=== PATIENT | male | born 1930 | race Caucasian/White ===

== ENCOUNTER 2019-01-21 22:24 | Inpatient (IN) | payer MEDICARE, MEDICAID ==
[~2019-01-21] VITALS: Ht 162.6 cm; Wt 67.6 kg
[2019-01-22 01:00] VITALS: BP 125/82
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
[2019-01-22] MEDS ORDERED: OMEG1CAP55 PO (01:45)
[2019-01-22] MEDS ORDERED: CALC1TAB30 PO (01:47)
[2019-01-22] MEDS ORDERED: RANI150T8 PO (01:49)
[2019-01-22] MEDS ORDERED: ASPI-1152 PO (01:50)
[2019-01-22] MEDS ORDERED: FLUT16SP16 NS (01:52)
[2019-01-22] MEDS ORDERED: GABA-532 PO (01:53)
[2019-01-22] MEDS ORDERED: TELM40TA2 PO (01:54)
[2019-01-22] MEDS ORDERED: CILO100T PO (01:54)
[2019-01-22] MEDS ORDERED: CELE200C PO (01:55)
[2019-01-22] MEDS ORDERED: ESOM40CA PO (01:57)
[2019-01-22] MEDS ORDERED: CALC500T52 PO (01:57)
[2019-01-22] MEDS ORDERED: SOLI5TAB2 PO (01:58)
[2019-01-22] MEDS ORDERED: NEBI5TAB8 PO (01:59)
[2019-01-22] MEDS ORDERED: MAG HYDROX/AL HYDROX/SIMETH 30 ML UDC PO PRN (02:00)
[2019-01-22] MEDS ORDERED: MAGNESIUM HYDROXIDE 30 ML UDC PO PRN (02:00)
[2019-01-22] MEDS ORDERED: ACETAMINOPHEN 325 MG TABLET PO PRN (02:00)
[2019-01-22] MEDS ORDERED: CHOL200026 PO (02:00)
[2019-01-22] MEDS ORDERED: ALCA3DRO EACHEYE (02:01)
[2019-01-22] MEDS ORDERED: ATOR10TA PO (02:01)
[2019-01-22] MEDS ORDERED: CLOP75TA15 PO (02:02)
[2019-01-22] MEDS ORDERED: TAMS-12 PO (02:03)
[2019-01-22] MEDS ORDERED: LEVO25TA7 PO (02:06)
[2019-01-22] MEDS ORDERED: RIVA10TA PO (02:07)
[2019-01-22] MEDS ORDERED: LORA-259 PO (02:09)
[2019-01-22] MEDS ORDERED: FOLI1TAB16 PO (02:10)
[2019-01-22] MEDS ORDERED: DOCU-141 PO (02:11)
[2019-01-22] MEDS ORDERED: METF-440 PO (02:13)
[2019-01-22] MEDS ORDERED: ZALE10CA PO (02:14)
--- NOTE | 2019-01-22 06:10 | NUR ---
PAGED DR. NATARAJAN FOR MED RECON. AWAITING FOR CALLBACK. WILL ENDORSE TO THE NEXT SHIFT FOR FOLLOW UP.
[2019-01-22 07:04] LABS: BASOPHILS # (AUTO) 0.1 /CMM (0.0-0.2); BASOPHILS % (AUTO) 0.8 % (0.0-2.0); EOSINOPHILS % (AUTO) 1.8 % (0.0-6.0); HEMATOCRIT 40 % (39-51); HEMOGLOBIN 13.6 g/dL (13.5-17.5); LYMPHOCYTES # (AUTO) 1.9 /CMM (0.8-4.8); LYMPHOCYTES % (AUTO) 25.4 % (20.0-44.0); MEAN CORPUSCULAR HGB CONC 34 g/dl (31.0-36.0); MEAN CORPUSCULAR VOLUME 98 fL (80-96); MONOCYTES # (AUTO) 1.2 /CMM (0.1-1.30); MONOCYTES % (AUTO) 15.7 % (2.0-12.0); NEUTROPHILS # (AUTO) 4.2 /CMM (1.8-8.9); NEUTROPHILS % (AUTO) 56.3 % (43.0-81.0); PLATELET COUNT (AUTO) 360 /CMM (150-450); WHITE BLOOD COUNT (AUTO) 7.5 K/uL (4.3-11.0)
[2019-01-22 07:33] LABS: ALANINE AMINOTRANSFERASE 26 U/L (12-78); ALBUMIN 2.7 g/dL (3.4-5.0); ALKALINE PHOSPHATASE 78 U/L (46-116); ASPARTATE AMINOTRANSFERASE 27 U/L (15-37); BILIRUBIN,TOTAL 0.4 mg/dL (0.2-1.0); CALCIUM, SERUM 8.6 mg/dL (8.5-10.1); CARBON DIOXIDE 29 mmol/L (21-32); CHLORIDE 105 mmol/L (98-107); CREATININE 0.9 mg/dL (0.6-1.3); GLUCOSE 103 mg/dL (74-106); POTASSIUM 4.5 mmol/L (3.5-5.1); SODIUM SERUM 140 mmol/L (136-145); TOTAL PROTEIN, SERUM 6.4 g/dL (6.4-8.2); UREA NITROGEN, BLOOD 22 mg/dL (7-18)
[2019-01-22 07:35] LABS: CHOLESTEROL 159 mg/dL (<200); HDL CHOLESTEROL 53 mg/dL (40-60); LDL 93 mg/dL (0-99); TRIGLYCERIDES 78 mg/dL (30-150)
[2019-01-22 08:00] VITALS: BP 129/68
[2019-01-22] MEDS: NICOTINE PATCH (14MG) 14 MG PATCH.TD24 TD SCH (08:47)
[2019-01-22 09:21] LABS: EOSINOPHILS % (MANUAL) 3 % (0-4); LYMPHOCYTES % (MANUAL) 21 % (16-48); MONOCYTES % (MANUAL) 12 % (0-11.0); NEUTROPHILS % (MANUAL) 64 (42-76)
--- NOTE | 2019-01-22 14:13 | NUR ---
SW called the pts niece, Tonya ([phone]), who stated that the pt is resistant to care and has not been able to take care of himself or his home without his . Pts treatment plan and initial discharge plan was discussed.
--- NOTE | 2019-01-22 14:13 | NUR ---
Initial Discharge Plan: Pt currently resides at his home alone located at [address] [place] [address]; ([phone]). Per pt, he would like to be discharged to the [facility] where he has homeless friends even though he has a home. SW will work with the pt and the MD regarding appropriate discharge planning. SW will form a safe and proper discharge.
[2019-01-22 16:00] VITALS: BP 155/89
--- NOTE | 2019-01-22 16:27 | NUR ---
Group Note: Pt refused to attend group therapy that took place on 01/22/19 at 2:30PM because he stated that he wanted to remain in his room where he is comfortable and because he does not need any help.
[2019-01-22] MEDS: QUETIAPINE FUMARATE 25 MG TABLET PO SCH (16:50)
--- NOTE | 2019-01-22 19:45 | NUR ---
GPS RN NOTE, RECEIVED PATIENT AWAKE AND IN BED, NO S/S OR COMPLAINTS OF PAIN AT THIS TIME. PATIENT IS DISPLAYING NO S/S OF APPARENT DISTRESS AT THIS TIME. PATIENT IS SLOVAK SPEAKING. PATIENT BREATHING IS UNLABORED WITH EQUAL RISE AND FALL OF THE CHEST. PATIENT IS ALERT AND ORIENTED X 1 ON ROOM AIR WITH A SPO2 OF 95 %. PAGED [facility] DUE TO THE FACT THAT THIS PATIENT NEEDS A MEDICATION RECLINATION. PATIENT IS MED COMPLAINT, DISORGANIZED, ANXIOUS, UNCOOPERATIVE, PARANOID, DELUSIONAL AT TIMES, AND NEEDS REORIENTATION. PATIENT DENIES SUICIDE AND HOMICIDAL IDEATIONS AT THIS TIME. PATIENT ASSISTED WITH TURNING AND REPOSITIONING Q2HR AND PRN FOR COMFORT AND CIRCULATION. PATIENT HAS NO NEEDS AT THIS TIME. PATIENT EDUCATED ON THE USE OF THE CALL RICK. PATIENT BED SIDE RAILS ARE UP X 2 FOR SAFETY, BED IS LOCKED, AND LOW WILL CONTINUE TO MONITOR AND MAINTAIN SAFETY.
[2019-01-22 20:00] VITALS: BP 155/89
--- NOTE | 2019-01-22 20:00 | NUR ---
PAGED DR. NATARAJAN FOR MED RECON. AWAITING FOR A CALL BACK.
--- NOTE | 2019-01-22 23:10 | NUR ---
PAGED DR. NATARAJAN FOR MED RECON. AWAITING FOR A CALL BACK.
[2019-01-23] MEDS: METOPROLOL TARTRATE 25 MG TABLET PO SCH ×4 (01:03→20:49)
[2019-01-23] MEDS: PANTOPRAZOLE 40 MG TABLET.DR PO SCH ×2 (07:30→08:39)
[2019-01-23] MEDS: LEVOTHYROXINE SODIUM 25 MCG TABLET PO SCH ×2 (07:30→08:41)
[2019-01-23 08:00] VITALS: BP 121/75
[2019-01-23] MEDS: RIVAROXABAN 10 MG TABLET PO SCH ×2 (08:00→08:40)
[2019-01-23] MEDS: METFORMIN 500 MG TABLET PO SCH ×2 (08:00→08:42)
[2019-01-23] MEDS: NICOTINE PATCH (14MG) 14 MG PATCH.TD24 TD SCH ×2 (08:39→08:59)
[2019-01-23] MEDS: CALCIUM CARBONATE (1250) 500 MG TABLET PO SCH ×2 (08:41→08:58)
[2019-01-23] MEDS: CELECOXIB 100 MG CAPSULE PO SCH ×2 (08:41→08:56)
[2019-01-23] MEDS: DOCUSATE SODIUM 100 MG CAPSULE PO SCH ×3 (08:41→16:37)
[2019-01-23] MEDS: GABAPENTIN 100 MG CAPSULE PO SCH ×4 (08:41→16:31)
[2019-01-23] MEDS: OXYBUTYNIN CHLORIDE 5 MG TABLET PO SCH ×3 (08:41→16:31)
[2019-01-23] MEDS: QUETIAPINE FUMARATE 25 MG TABLET PO SCH ×3 (08:41→16:30)
[2019-01-23] MEDS: CLOPIDOGREL BISULFATE 75 MG TABLET PO SCH ×2 (08:41→08:58)
[2019-01-23] MEDS: FOLIC ACID 1 MG TABLET PO SCH ×2 (08:42→08:57)
[2019-01-23] MEDS: ASPIRIN EC 81 MG TABLET.DR PO SCH ×2 (08:42→08:56)
[2019-01-23] MEDS: LOSARTAN POTASSIUM 50 MG TABLET PO SCH ×2 (08:45→08:56)
[2019-01-23] MEDS: FLUTICASONE PROPIONATE 16 GM BOTTLE NS SCH (08:46)
[2019-01-23] MEDS: CILOSTAZOL 100 MG TABLET PO SCH ×2 (08:59→16:31)
[2019-01-23] MEDS: CHOLECALCIFEROL 1,000 UNIT TABLET (VIT D3) PO SCH (08:59)
[2019-01-23] MEDS ORDERED: SOLIFENACIN SUCCINATE 5 MG TABLET PO SCH (09:00)
--- NOTE | 2019-01-23 11:10 | NUR ---
WOUND CARE CONSULT: PT PRESENTS AMBULATORY AND CONTINENT WITH RED LESIONS ON LEFT BUTTOCK, PRESENT ON ADMISSION. 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 PT IS QATARI SPEAKING ONLY AND QATARI SPEAKING NURSE ASSISTING WITH TRANSLATION. DEFER TO MD FOR LESIONS. NO DRAINAGE OR TENDERNESS NOTED. WILL SEE PRN. Addendum: 01/23/19 at 1111 by FABIOLA BASHIR WNDNU Amended: Links added.
[2019-01-23 16:00] VITALS: BP 141/90
--- NOTE | 2019-01-23 16:48 | NUR ---
RN-CO: CALLED DR MEDINA OFFICE , SPOKE WITH MAXI REGARDING DR HAYWOOD'S ORDER. ( TO R/O DEMENTIA)
[2019-01-23 19:58] VITALS: BP 105/72
[2019-01-23 20:12] VITALS: BP 105/72
[2019-01-23] MEDS: ATORVASTATIN 10 MG TABLET PO SCH (21:58)
[2019-01-23] MEDS: TAMSULOSIN 0.4 MG CAP.SR.24H PO SCH (21:58)
[2019-01-24 08:00] VITALS: BP 122/65
[2019-01-24] MEDS: METFORMIN 500 MG TABLET PO SCH (08:00)
[2019-01-24] MEDS: RIVAROXABAN 10 MG TABLET PO SCH (08:00)
[2019-01-24] MEDS: QUETIAPINE FUMARATE 25 MG TABLET PO SCH ×2 (08:24→16:16)
[2019-01-24] MEDS: LEVOTHYROXINE SODIUM 25 MCG TABLET PO SCH (08:24)
[2019-01-24] MEDS: CHOLECALCIFEROL 1,000 UNIT TABLET (VIT D3) PO SCH (08:24)
[2019-01-24] MEDS: ASPIRIN EC 81 MG TABLET.DR PO SCH (08:24)
[2019-01-24] MEDS: PANTOPRAZOLE 40 MG TABLET.DR PO SCH (08:24)
[2019-01-24] MEDS: GABAPENTIN 100 MG CAPSULE PO SCH ×3 (08:25→16:16)
[2019-01-24] MEDS: METOPROLOL TARTRATE 25 MG TABLET PO SCH ×2 (08:25→21:29)
[2019-01-24] MEDS: LOSARTAN POTASSIUM 50 MG TABLET PO SCH (08:26)
[2019-01-24] MEDS: FLUTICASONE PROPIONATE 16 GM BOTTLE NS SCH (08:26)
[2019-01-24] MEDS: CELECOXIB 100 MG CAPSULE PO SCH (08:26)
[2019-01-24] MEDS: DOCUSATE SODIUM 100 MG CAPSULE PO SCH ×2 (08:26→16:18)
[2019-01-24] MEDS: CILOSTAZOL 100 MG TABLET PO SCH ×2 (08:27→16:19)
[2019-01-24] MEDS: CALCIUM CARBONATE (1250) 500 MG TABLET PO SCH (08:27)
[2019-01-24] MEDS: FOLIC ACID 1 MG TABLET PO SCH (08:27)
[2019-01-24] MEDS: CLOPIDOGREL BISULFATE 75 MG TABLET PO SCH (08:27)
[2019-01-24] MEDS: OXYBUTYNIN CHLORIDE 5 MG TABLET PO SCH ×2 (08:27→16:56)
[2019-01-24] MEDS: NICOTINE PATCH (14MG) 14 MG PATCH.TD24 TD SCH (08:27)
[2019-01-24 16:00] VITALS: BP 148/88
[2019-01-24 19:54] VITALS: BP 117/78
[2019-01-24] MEDS: ATORVASTATIN 10 MG TABLET PO SCH (21:28)
[2019-01-24] MEDS: TAMSULOSIN 0.4 MG CAP.SR.24H PO SCH (21:28)
[2019-01-24] MEDS: TEMAZEPAM 7.5 MG CAPSULE PO PRN (21:29)
[2019-01-25 08:00] VITALS: BP 120/77
[2019-01-25] MEDS: NICOTINE PATCH (14MG) 14 MG PATCH.TD24 TD SCH (08:59)
[2019-01-25] MEDS: ASPIRIN EC 81 MG TABLET.DR PO SCH (08:59)
[2019-01-25] MEDS: PANTOPRAZOLE 40 MG TABLET.DR PO SCH (08:59)
[2019-01-25] MEDS: CHOLECALCIFEROL 1,000 UNIT TABLET (VIT D3) PO SCH (09:00)
[2019-01-25] MEDS: CALCIUM CARBONATE (1250) 500 MG TABLET PO SCH (09:01)
[2019-01-25] MEDS: CELECOXIB 100 MG CAPSULE PO SCH (09:01)
[2019-01-25] MEDS: CLOPIDOGREL BISULFATE 75 MG TABLET PO SCH (09:03)
[2019-01-25] MEDS: RIVAROXABAN 10 MG TABLET PO SCH (09:03)
[2019-01-25] MEDS: DOCUSATE SODIUM 100 MG CAPSULE PO SCH (09:04)
[2019-01-25] MEDS: METFORMIN 500 MG TABLET PO SCH (09:04)
[2019-01-25] MEDS: FOLIC ACID 1 MG TABLET PO SCH (09:04)
[2019-01-25] MEDS: LOSARTAN POTASSIUM 50 MG TABLET PO SCH (09:05)
[2019-01-25] MEDS: OXYBUTYNIN CHLORIDE 5 MG TABLET PO SCH ×2 (09:05→18:47)
[2019-01-25] MEDS: QUETIAPINE FUMARATE 25 MG TABLET PO SCH ×2 (09:07→18:50)
[2019-01-25] MEDS: GABAPENTIN 100 MG CAPSULE PO SCH ×2 (09:07→17:00)
[2019-01-25] MEDS: CILOSTAZOL 100 MG TABLET PO SCH ×2 (09:08→18:47)
[2019-01-25] MEDS: FLUTICASONE PROPIONATE 16 GM BOTTLE NS SCH (09:11)
[2019-01-25] MEDS: LEVOTHYROXINE SODIUM 25 MCG TABLET PO SCH (09:18)
[2019-01-25] MEDS: METOPROLOL TARTRATE 25 MG TABLET PO SCH (09:19)
[2019-01-25 09:45] LABS: APPEARANCE,URINE TURBID (CLEAR); BILIRUBIN,URINE 1+ (NEGATIVE); BLOOD, URINE NEGATIVE Ery/uL (NEGATIVE); COLOR,URINE YELLOW (YELLOW); KETONES,URINE NEGATIVE (NEGATIVE); LEUKOCYTE ESTERASE ,URINE NEGATIVE (NEGATIVE); NITRITE, URINE NEGATIVE (NEGATIVE); PH,URINE 5.5 (5.0-8.0); PROTEIN,URINE TRACE mg/dl (NEGATIVE); UGLUCOSE NEGATIVE (NEGATIVE); UROBILINOGEN,URINE 0.2 EU/dL (0.2)
[2019-01-25 10:01] LABS: BACTERIA,URINE Rare /HPF (None Seen); RBC,URINE 0-2 /HPF (0-2); SQUAMOUS EPITHELIAL CELL,UR 0-2 /HPF (None Seen); WBC,URINE 0-2 /HPF (0-3)
[2019-01-25 10:02] LABS: URINE AMORPHOUS URATE Many /HPF (None Seen)
[2019-01-25 16:00] VITALS: BP 130/67
[2019-01-25 20:00] VITALS: BP 155/76
[2019-01-25] MEDS: ATORVASTATIN 10 MG TABLET PO SCH (21:40)
[2019-01-25] MEDS: TAMSULOSIN 0.4 MG CAP.SR.24H PO SCH (21:40)
[2019-01-26] MEDS: TEMAZEPAM 7.5 MG CAPSULE PO PRN ×2 (01:09→21:39)
[2019-01-26] MEDS: PANTOPRAZOLE 40 MG TABLET.DR PO SCH (07:30)
[2019-01-26 08:00] VITALS: BP 111/71
[2019-01-26] MEDS: RIVAROXABAN 10 MG TABLET PO SCH (08:00)
[2019-01-26] MEDS: METFORMIN 500 MG TABLET PO SCH (08:00)
--- NOTE | 2019-01-26 08:20 | NUR ---
GPS RN NOTE: AM MEDICATIONS WAS UNDONE FOR LAST MORNING RN THE ONE SCHEDULE FOR 01/26/19 , TO ADMINISTER AM SCHEDULED MEDICATIONS. CHARGE NURSE, PHARMACIST NOTIFIED.
[2019-01-26] MEDS: ASPIRIN EC 81 MG TABLET.DR PO SCH (08:41)
[2019-01-26] MEDS: LEVOTHYROXINE SODIUM 25 MCG TABLET PO SCH (08:41)
[2019-01-26] MEDS: QUETIAPINE FUMARATE 25 MG TABLET PO SCH ×2 (08:42→16:25)
[2019-01-26] MEDS: CHOLECALCIFEROL 1,000 UNIT TABLET (VIT D3) PO SCH (08:42)
[2019-01-26] MEDS: GABAPENTIN 100 MG CAPSULE PO SCH ×3 (08:42→16:25)
[2019-01-26] MEDS: DOCUSATE SODIUM 100 MG CAPSULE PO SCH ×2 (08:45→16:24)
[2019-01-26] MEDS: LOSARTAN POTASSIUM 50 MG TABLET PO SCH (08:45)
[2019-01-26] MEDS: FLUTICASONE PROPIONATE 16 GM BOTTLE NS SCH (08:45)
[2019-01-26] MEDS: OXYBUTYNIN CHLORIDE 5 MG TABLET PO SCH ×2 (08:45→16:24)
[2019-01-26] MEDS: METOPROLOL TARTRATE 25 MG TABLET PO SCH ×2 (08:45→21:39)
[2019-01-26] MEDS: FOLIC ACID 1 MG TABLET PO SCH (08:45)
[2019-01-26] MEDS: CELECOXIB 100 MG CAPSULE PO SCH (08:45)
[2019-01-26] MEDS: CALCIUM CARBONATE (1250) 500 MG TABLET PO SCH (08:46)
[2019-01-26] MEDS: CLOPIDOGREL BISULFATE 75 MG TABLET PO SCH (08:46)
[2019-01-26] MEDS: NICOTINE PATCH (14MG) 14 MG PATCH.TD24 TD SCH (08:46)
--- NOTE | 2019-01-26 15:15 | NUR ---
PC Hearing Notification: KAYLA called the pts Tonya hebert ([phone]), and left her a message stating that the pt is going to have a hearing tomorrow and explained the process of the hearing.
[2019-01-26 16:00] VITALS: BP 144/97
[2019-01-26] MEDS: CILOSTAZOL 100 MG TABLET PO SCH (16:25)
[2019-01-26 20:14] VITALS: BP 159/73
[2019-01-26] MEDS: TAMSULOSIN 0.4 MG CAP.SR.24H PO SCH (21:39)
[2019-01-26] MEDS: ATORVASTATIN 10 MG TABLET PO SCH (21:39)
[2019-01-27 08:00] VITALS: BP 118/80
[2019-01-27] MEDS: LEVOTHYROXINE SODIUM 25 MCG TABLET PO SCH (08:58)
[2019-01-27] MEDS: CALCIUM CARBONATE (1250) 500 MG TABLET PO SCH (08:58)
[2019-01-27] MEDS: CLOPIDOGREL BISULFATE 75 MG TABLET PO SCH (08:58)
[2019-01-27] MEDS: CELECOXIB 100 MG CAPSULE PO SCH (08:58)
[2019-01-27] MEDS: LOSARTAN POTASSIUM 50 MG TABLET PO SCH (08:58)
[2019-01-27] MEDS: GABAPENTIN 100 MG CAPSULE PO SCH ×3 (08:58→16:23)
[2019-01-27] MEDS: METOPROLOL TARTRATE 25 MG TABLET PO SCH ×2 (08:59→21:53)
[2019-01-27] MEDS: PANTOPRAZOLE 40 MG TABLET.DR PO SCH (08:59)
[2019-01-27] MEDS: QUETIAPINE FUMARATE 25 MG TABLET PO SCH ×3 (08:59→21:53)
[2019-01-27] MEDS: OXYBUTYNIN CHLORIDE 5 MG TABLET PO SCH ×2 (08:59→16:23)
[2019-01-27] MEDS: ASPIRIN EC 81 MG TABLET.DR PO SCH (08:59)
[2019-01-27] MEDS: DOCUSATE SODIUM 100 MG CAPSULE PO SCH ×2 (08:59→16:23)
[2019-01-27] MEDS: FOLIC ACID 1 MG TABLET PO SCH (08:59)
[2019-01-27] MEDS: NICOTINE PATCH (14MG) 14 MG PATCH.TD24 TD SCH (09:00)
[2019-01-27] MEDS: CHOLECALCIFEROL 1,000 UNIT TABLET (VIT D3) PO SCH (09:00)
[2019-01-27] MEDS: METFORMIN 500 MG TABLET PO SCH (09:01)
[2019-01-27] MEDS: RIVAROXABAN 10 MG TABLET PO SCH (09:02)
[2019-01-27] MEDS: CILOSTAZOL 100 MG TABLET PO SCH ×2 (09:03→16:23)
[2019-01-27] MEDS: FLUTICASONE PROPIONATE 16 GM BOTTLE NS SCH (09:04)
[2019-01-27 16:00] VITALS: BP 107/70
--- NOTE | 2019-01-27 16:10 | NUR ---
SW called the pts niece, Tonya ([phone]), and informed her that the pt stated that he is accepting SNF placement. SW stated that she would like to send a referral to the same facility that the pts is in. Pts niece stated that the facility is [facility].
--- NOTE | 2019-01-27 16:11 | NUR ---
KAYLA faxed a referral to [facility] with attention to Yesenia to the fax number: [phone].
[2019-01-27 20:28] VITALS: BP 102/58
[2019-01-27] MEDS: LORAZEPAM 0.5 MG TABLET PO PRN (21:52)
[2019-01-27] MEDS: ATORVASTATIN 10 MG TABLET PO SCH (21:52)
[2019-01-27] MEDS: TAMSULOSIN 0.4 MG CAP.SR.24H PO SCH (21:52)
[2019-01-27] MEDS: TEMAZEPAM 7.5 MG CAPSULE PO PRN (21:53)
[2019-01-28] MEDS ORDERED: AMOX/CLAVULANATE 875 MG TABLET ONE (05:00)
[2019-01-28] MEDS: LEVOTHYROXINE SODIUM 25 MCG TABLET PO SCH (07:30)
[2019-01-28] MEDS: PANTOPRAZOLE 40 MG TABLET.DR PO SCH (07:30)
[2019-01-28 08:00] VITALS: BP 127/80
[2019-01-28] MEDS: RIVAROXABAN 10 MG TABLET PO SCH (08:00)
[2019-01-28] MEDS: METFORMIN 500 MG TABLET PO SCH (08:00)
[2019-01-28] MEDS: CELECOXIB 100 MG CAPSULE PO SCH (09:00)
[2019-01-28] MEDS: DOCUSATE SODIUM 100 MG CAPSULE PO SCH ×2 (09:01→17:58)
[2019-01-28] MEDS: GABAPENTIN 100 MG CAPSULE PO SCH ×3 (09:01→17:58)
[2019-01-28] MEDS: ASPIRIN EC 81 MG TABLET.DR PO SCH (09:01)
[2019-01-28] MEDS: CLOPIDOGREL BISULFATE 75 MG TABLET PO SCH (09:01)
[2019-01-28] MEDS: CALCIUM CARBONATE (1250) 500 MG TABLET PO SCH (09:02)
[2019-01-28] MEDS: FOLIC ACID 1 MG TABLET PO SCH (09:02)
[2019-01-28] MEDS: OXYBUTYNIN CHLORIDE 5 MG TABLET PO SCH ×2 (09:03→17:58)
[2019-01-28] MEDS: LOSARTAN POTASSIUM 50 MG TABLET PO SCH (09:03)
[2019-01-28] MEDS: METOPROLOL TARTRATE 25 MG TABLET PO SCH ×2 (09:03→21:00)
[2019-01-28] MEDS: NICOTINE PATCH (14MG) 14 MG PATCH.TD24 TD SCH (09:05)
[2019-01-28] MEDS: CHOLECALCIFEROL 1,000 UNIT TABLET (VIT D3) PO SCH (09:05)
[2019-01-28] MEDS: QUETIAPINE FUMARATE 25 MG TABLET PO SCH ×3 (09:05→21:25)
[2019-01-28] MEDS: FLUTICASONE PROPIONATE 16 GM BOTTLE NS SCH (09:09)
[2019-01-28] MEDS: CILOSTAZOL 100 MG TABLET PO SCH ×2 (09:09→17:58)
[2019-01-28 11:25] LABS: BASOPHILS % (AUTO) 0.5 % (0.0-2.0); EOSINOPHILS % (AUTO) 2.1 % (0.0-6.0); HEMATOCRIT 39 % (39-51); HEMOGLOBIN 12.9 g/dL (13.5-17.5); LYMPHOCYTES # (AUTO) 1.8 /CMM (0.8-4.8); LYMPHOCYTES % (AUTO) 22.9 % (20.0-44.0); MEAN CORPUSCULAR HGB CONC 34 g/dl (31.0-36.0); MEAN CORPUSCULAR VOLUME 97 fL (80-96); MONOCYTES # (AUTO) 1.3 /CMM (0.1-1.30); MONOCYTES % (AUTO) 15.7 % (2.0-12.0); NEUTROPHILS # (AUTO) 4.7 /CMM (1.8-8.9); NEUTROPHILS % (AUTO) 58.8 % (43.0-81.0); PLATELET COUNT (AUTO) 334 /CMM (150-450); RED BLOOD CELL COUNT(AUTO) 3.97 MIL/uL (4.5-6.0); WHITE BLOOD COUNT (AUTO) 8.1 K/uL (4.3-11.0)
[2019-01-28 11:30] LABS: CALCIUM, SERUM 9.1 mg/dL (8.5-10.1); CARBON DIOXIDE 30 mmol/L (21-32); CHLORIDE 100 mmol/L (98-107); CREATININE 1.1 mg/dL (0.6-1.3); GLUCOSE 146 mg/dL (74-106); MAGNESIUM 1.6 mg/dL (1.8-2.4); PHOSPHORUS 3.8 mg/dL (2.5-4.9); POTASSIUM 4.8 mmol/L (3.5-5.1); SODIUM SERUM 137 mmol/L (136-145); UREA NITROGEN, BLOOD 21 mg/dL (7-18)
[2019-01-28] MEDS: LORAZEPAM 0.5 MG TABLET PO PRN (11:46)
--- NOTE | 2019-01-28 11:47 | NUR ---
RN note :patient medicated with ativan 0.5mg po x1 for anxiety will CONTINUE TO MONITOR .
[2019-01-28] MEDS ORDERED: MAGNESIUM OXIDE 400 MG TABLET PO ONE (12:30)
[2019-01-28 12:45] LABS: EOSINOPHILS % (MANUAL) 4 % (0-4); LYMPHOCYTES % (MANUAL) 18 % (16-48); MONOCYTES % (MANUAL) 19 % (0-11.0); NEUTROPHILS % (MANUAL) 59 (42-76)
--- NOTE | 2019-01-28 14:01 | NUR ---
KAYLA returned the call from the pts Tonya hebert ([phone]), and it was discussed that the current plan is for the pt to be admitted into the same [facility] facility as his . She stated that she would like to have DPOA for the pt and the SW informed her that she would have to wait for the pt to be discharged first.
--- NOTE | 2019-01-28 14:07 | NUR ---
KAYLA called Yesenia from [facility] [[email or web address]] and she stated that her DON is still making a decision and the SW will get a call back.
[2019-01-28 16:00] VITALS: BP 100/61
--- NOTE | 2019-01-28 19:50 | NUR ---
GPS RN NOTES RECEIVED WALKING AROUND THE HALLWAYS WITH STEADY GAIT.ABLE TO VERBALIZED NEEDS,EATING CHIPS HE WALKS IN THE HALLWAYS.NOTED SOME DRY SKIN ABRASIONS WITH SCAB ON RIGHT ELBOW.MED COMPLIANT PER REPORT.WILL CONTINUE TO MONITOR BEHAVIOR
[2019-01-28 20:10] VITALS: BP 111/60
--- NOTE | 2019-01-28 21:00 | NUR ---
GPS RN NOTES OFFERED OTHER NIGHT MEDS BUT REFUSED BUT AFTER EXPLAINING BY [employer] STARTER CUP POWDER MIXER RISK AND BENEFITS OF NOT TAKING MEDICINE,HE AGREED TO TAKE HIS MEDICINE,ADMINISTERED,BUT NOT SLEEPING PILL,REFUSED
--- NOTE | 2019-01-28 21:00 | NUR ---
GPS RN NOTES DUE LOPRESSOR 25MG PO HELD FOR LOW BLOOD PRESSURE 111/64
[2019-01-28] MEDS: TAMSULOSIN 0.4 MG CAP.SR.24H PO SCH (21:25)
[2019-01-28] MEDS: ATORVASTATIN 10 MG TABLET PO SCH (21:25)
[2019-01-28] MEDS: TEMAZEPAM 7.5 MG CAPSULE PO PRN (21:26)
[2019-01-29 08:00] VITALS: BP 110/56
[2019-01-29] MEDS: NICOTINE PATCH (14MG) 14 MG PATCH.TD24 TD SCH ×2 (09:00→09:15)
[2019-01-29] MEDS: METOPROLOL TARTRATE 25 MG TABLET PO SCH ×2 (09:14→21:48)
[2019-01-29] MEDS: FLUTICASONE PROPIONATE 16 GM BOTTLE NS SCH (09:14)
[2019-01-29] MEDS: ASPIRIN EC 81 MG TABLET.DR PO SCH (09:15)
[2019-01-29] MEDS: LEVOTHYROXINE SODIUM 25 MCG TABLET PO SCH (09:15)
[2019-01-29] MEDS: CALCIUM CARBONATE (1250) 500 MG TABLET PO SCH (09:15)
[2019-01-29] MEDS: OXYBUTYNIN CHLORIDE 5 MG TABLET PO SCH ×2 (09:15→17:15)
[2019-01-29] MEDS: LOSARTAN POTASSIUM 50 MG TABLET PO SCH (09:15)
[2019-01-29] MEDS: FOLIC ACID 1 MG TABLET PO SCH (09:15)
[2019-01-29] MEDS: GABAPENTIN 100 MG CAPSULE PO SCH ×3 (09:15→17:16)
[2019-01-29] MEDS: PANTOPRAZOLE 40 MG TABLET.DR PO SCH (09:15)
[2019-01-29] MEDS: CELECOXIB 100 MG CAPSULE PO SCH (09:16)
[2019-01-29] MEDS: CHOLECALCIFEROL 1,000 UNIT TABLET (VIT D3) PO SCH (09:16)
[2019-01-29] MEDS: METFORMIN 500 MG TABLET PO SCH (09:16)
[2019-01-29] MEDS: QUETIAPINE FUMARATE 25 MG TABLET PO SCH ×3 (09:16→21:48)
[2019-01-29] MEDS: CILOSTAZOL 100 MG TABLET PO SCH ×2 (09:25→17:15)
[2019-01-29] MEDS: DOCUSATE SODIUM 100 MG CAPSULE PO SCH ×2 (09:25→17:15)
[2019-01-29] MEDS: CLOPIDOGREL BISULFATE 75 MG TABLET PO SCH (09:25)
[2019-01-29] MEDS: RIVAROXABAN 10 MG TABLET PO SCH (09:28)
--- NOTE | 2019-01-29 11:00 | NUR ---
RN GPS NOTES RECEIVED PATIENT A/O X3 WALKING AMBULATORY ON UNIT. NO SIGNS OR SYMPTOMS OF RESPIRATORY DISTRESS OR ACUTE PAIN NOTED. PATIENT IS MED COMPLIANT. ONE EPISODE OF AGITATION UNPROVOKED. PATIENT DENIES AND SUICIDAL IDEATIONS OR HOMICIDAL IDEATIONS AT THIS TIME. APPETITE GOOD SAFETY PRECAUTIONS IN PLACE BED IN LOW AND LOCKED POSITION. PATIENT ABLE TO EXPRESS NEEDS AND ALL MET. PATIENT EDUCATED IN USE OF CALL RICK. WILL CONT TO MONITOR ACCORDINGLY
--- NOTE | 2019-01-29 13:53 | NUR ---
KAYLA called Yesenia from [facility] and she stated that her DON will inform her about whether or not the pt is accepted to their facility.
--- NOTE | 2019-01-29 14:26 | NUR ---
Bárabra from [facility] called the SW and stated that the pt was accepted to their facility and stated that they will send the pt back if they encounter any behavioral problems. As the call went on, she asked if the hospital would apply for public guardianship over the pt and the SW stated that was not the current plan. She stated that she will call the SW back and the SW informed her that the pts niece is in the process of applying for DPOA.
[2019-01-29 16:00] VITALS: BP 100/54
--- NOTE | 2019-01-29 16:45 | NUR ---
ORDERS OBTAINED FROM [facility] FOR RIB SERIES XRAY
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
[2019-01-29 20:00] VITALS: BP 130/86
--- NOTE | 2019-01-29 20:23 | NUR ---
PAGED DR MANCIA INFORMED OF X RATY RESULT ADVUCE TO REFER TO THE MORNING DOCTOR FOR EPIC Addendum: 01/29/19 at 2024 by BELLO MURILLO RN PAGEChika ROBLES INFORMED OF X RAY RESULT. ADVICED TO REFER TO THE MORNING OSVALDO GRIGGS.
[2019-01-29] MEDS: TAMSULOSIN 0.4 MG CAP.SR.24H PO SCH (21:47)
[2019-01-29] MEDS: LORAZEPAM 0.5 MG TABLET PO PRN (21:47)
[2019-01-29] MEDS: TEMAZEPAM 7.5 MG CAPSULE PO PRN (21:48)
[2019-01-29] MEDS: ATORVASTATIN 10 MG TABLET PO SCH (21:48)
[2019-01-30] MEDS: PANTOPRAZOLE 40 MG TABLET.DR PO SCH (07:30)
[2019-01-30 08:00] VITALS: BP 93/56
[2019-01-30] MEDS: METFORMIN 500 MG TABLET PO SCH (08:00)
[2019-01-30] MEDS: RIVAROXABAN 10 MG TABLET PO SCH (08:00)
[2019-01-30] MEDS: ASPIRIN EC 81 MG TABLET.DR PO SCH (08:35)
[2019-01-30] MEDS: OXYBUTYNIN CHLORIDE 5 MG TABLET PO SCH ×2 (08:36→16:18)
[2019-01-30] MEDS: QUETIAPINE FUMARATE 25 MG TABLET PO SCH ×3 (08:36→20:51)
[2019-01-30] MEDS: CHOLECALCIFEROL 1,000 UNIT TABLET (VIT D3) PO SCH (08:36)
[2019-01-30] MEDS: NICOTINE PATCH (14MG) 14 MG PATCH.TD24 TD SCH (08:36)
[2019-01-30] MEDS: LEVOTHYROXINE SODIUM 25 MCG TABLET PO SCH (08:36)
[2019-01-30] MEDS: LOSARTAN POTASSIUM 50 MG TABLET PO SCH (08:38)
[2019-01-30] MEDS: CILOSTAZOL 100 MG TABLET PO SCH ×2 (08:38→16:18)
[2019-01-30] MEDS: CELECOXIB 100 MG CAPSULE PO SCH (08:38)
[2019-01-30] MEDS: DOCUSATE SODIUM 100 MG CAPSULE PO SCH ×2 (08:38→16:18)
[2019-01-30] MEDS: FOLIC ACID 1 MG TABLET PO SCH (08:39)
[2019-01-30] MEDS: METOPROLOL TARTRATE 25 MG TABLET PO SCH ×2 (08:39→20:51)
[2019-01-30] MEDS: CALCIUM CARBONATE (1250) 500 MG TABLET PO SCH (08:39)
[2019-01-30] MEDS: FLUTICASONE PROPIONATE 16 GM BOTTLE NS SCH (08:40)
[2019-01-30] MEDS: CLOPIDOGREL BISULFATE 75 MG TABLET PO SCH (08:55)
[2019-01-30] MEDS: GABAPENTIN 100 MG CAPSULE PO SCH ×3 (08:55→16:18)
--- NOTE | 2019-01-30 13:29 | NUR ---
KAYLA called Yesenia from [facility] and informed her that the pt is going to be discharged on Saturday. She stated that they want the pts guardianship/decision maker to be completed before he is discharged and the SW stated that would not be possible because his niece is just starting the process on being his DPOA but has to wait for him to be out of the hospital before having him sign any papers.
--- NOTE | 2019-01-30 13:36 | NUR ---
KAYLA called the pts niece, Tonya ([phone]), and informed her about the facility's decision and she stated that she wanted the SW to reiterate that she is interested in being her uncle's decision maker but she needs to get the process started once he is released from his hold. KAYLA stated that she would inform them.
--- NOTE | 2019-01-30 13:38 | NUR ---
KAYLA called Yesenia from [facility] and informed her that the niece is interested in becoming the pts DPOA and Yesenia stated that she will meet with her and her DON together to create a plan before they can accept the pt.
--- NOTE | 2019-01-30 15:36 | NUR ---
RN-CO: Patient will be discharge on Saturday per Dr Barron.
[2019-01-30 16:00] VITALS: BP 131/73
[2019-01-30 20:10] VITALS: BP 111/64
[2019-01-30] MEDS: ATORVASTATIN 10 MG TABLET PO SCH (20:51)
[2019-01-30] MEDS: TAMSULOSIN 0.4 MG CAP.SR.24H PO SCH (20:51)
[2019-01-30] MEDS: TEMAZEPAM 7.5 MG CAPSULE PO PRN (20:52)
[2019-01-31] MEDS: METFORMIN 500 MG TABLET PO SCH (08:00)
[2019-01-31] MEDS: RIVAROXABAN 10 MG TABLET PO SCH (08:00)
[2019-01-31] MEDS: CILOSTAZOL 100 MG TABLET PO SCH ×2 (08:50→16:18)
[2019-01-31] MEDS: FLUTICASONE PROPIONATE 16 GM BOTTLE NS SCH (08:50)
[2019-01-31] MEDS: QUETIAPINE FUMARATE 25 MG TABLET PO SCH ×3 (08:50→21:23)
[2019-01-31] MEDS: OXYBUTYNIN CHLORIDE 5 MG TABLET PO SCH ×2 (08:50→16:18)
[2019-01-31] MEDS: GABAPENTIN 100 MG CAPSULE PO SCH ×3 (08:50→16:18)
[2019-01-31] MEDS: PANTOPRAZOLE 40 MG TABLET.DR PO SCH (08:50)
[2019-01-31] MEDS: ASPIRIN EC 81 MG TABLET.DR PO SCH (08:50)
[2019-01-31] MEDS: CALCIUM CARBONATE (1250) 500 MG TABLET PO SCH (08:50)
[2019-01-31] MEDS: CLOPIDOGREL BISULFATE 75 MG TABLET PO SCH (08:50)
[2019-01-31] MEDS: LEVOTHYROXINE SODIUM 25 MCG TABLET PO SCH (08:50)
[2019-01-31] MEDS: CELECOXIB 100 MG CAPSULE PO SCH (08:50)
[2019-01-31] MEDS: LOSARTAN POTASSIUM 50 MG TABLET PO SCH (08:51)
[2019-01-31] MEDS: NICOTINE PATCH (14MG) 14 MG PATCH.TD24 TD SCH (08:51)
[2019-01-31] MEDS: METOPROLOL TARTRATE 25 MG TABLET PO SCH ×2 (08:51→21:23)
[2019-01-31] MEDS: DOCUSATE SODIUM 100 MG CAPSULE PO SCH ×2 (08:51→16:18)
[2019-01-31] MEDS: FOLIC ACID 1 MG TABLET PO SCH (08:51)
[2019-01-31] MEDS: CHOLECALCIFEROL 1,000 UNIT TABLET (VIT D3) PO SCH (08:59)
[2019-01-31 16:00] VITALS: BP 125/72
[2019-01-31 20:10] VITALS: BP 144/78
[2019-01-31] MEDS: TAMSULOSIN 0.4 MG CAP.SR.24H PO SCH (21:23)
[2019-01-31] MEDS: ATORVASTATIN 10 MG TABLET PO SCH (21:23)
[2019-01-31] MEDS: TEMAZEPAM 7.5 MG CAPSULE PO PRN (21:23)
[2019-02-01 08:00] VITALS: BP 101/67
[2019-02-01] MEDS: RIVAROXABAN 10 MG TABLET PO SCH (08:00)
[2019-02-01] MEDS: METFORMIN 500 MG TABLET PO SCH (08:00)
[2019-02-01] MEDS: CELECOXIB 100 MG CAPSULE PO SCH (08:03)
[2019-02-01] MEDS: GABAPENTIN 100 MG CAPSULE PO SCH ×3 (08:03→16:37)
[2019-02-01] MEDS: OXYBUTYNIN CHLORIDE 5 MG TABLET PO SCH ×2 (08:03→16:38)
[2019-02-01] MEDS: CLOPIDOGREL BISULFATE 75 MG TABLET PO SCH (08:03)
[2019-02-01] MEDS: CILOSTAZOL 100 MG TABLET PO SCH ×2 (08:03→16:37)
[2019-02-01] MEDS: PANTOPRAZOLE 40 MG TABLET.DR PO SCH (08:03)
[2019-02-01] MEDS: ASPIRIN EC 81 MG TABLET.DR PO SCH (08:03)
[2019-02-01] MEDS: CALCIUM CARBONATE (1250) 500 MG TABLET PO SCH (08:03)
[2019-02-01] MEDS: LEVOTHYROXINE SODIUM 25 MCG TABLET PO SCH (08:04)
[2019-02-01] MEDS: FOLIC ACID 1 MG TABLET PO SCH (08:04)
[2019-02-01] MEDS: NICOTINE PATCH (14MG) 14 MG PATCH.TD24 TD SCH (08:04)
[2019-02-01] MEDS: METOPROLOL TARTRATE 25 MG TABLET PO SCH ×2 (08:04→21:00)
[2019-02-01] MEDS: QUETIAPINE FUMARATE 25 MG TABLET PO SCH ×3 (08:04→21:51)
[2019-02-01] MEDS: LOSARTAN POTASSIUM 50 MG TABLET PO SCH (08:04)
[2019-02-01] MEDS: CHOLECALCIFEROL 1,000 UNIT TABLET (VIT D3) PO SCH (08:04)
[2019-02-01] MEDS: DOCUSATE SODIUM 100 MG CAPSULE PO SCH ×2 (08:05→16:38)
[2019-02-01] MEDS: FLUTICASONE PROPIONATE 16 GM BOTTLE NS SCH (08:05)
[2019-02-01 16:00] VITALS: BP 148/86
--- NOTE | 2019-02-01 19:30 | NUR ---
GPS RN NOTE, PATIENT AGREED TO DO PICTURES TODAY.
--- NOTE | 2019-02-01 19:30 | NUR ---
GPS RN NOTE, RECEIVED PATIENT AWAKE AND IN BED, NO S/S OR COMPLAINTS OF PAIN AT THIS TIME. PATIENT IS DISPLAYING NO S/S OF APPARENT DISTRESS AT THIS TIME. PATIENT BREATHING IS UNLABORED WITH EQUAL RISE AND FALL OF THE CHEST. PATIENT IS ALERT AND ORIENTED X 2 ON ROOM AIR WITH A SPO2 OF 99 %. PATIENT IS COLOMBIAN SPEAKING ONLY. PATIENT IS MED SELECTIVE, DISORGANIZED, ANXIOUS, COOPERATIVE, AND NEEDS REORIENTATION. PATIENT DENIES SUICIDE AND HOMICIDAL IDEATIONS AT THIS TIME. PATIENT ASSISTED WITH TURNING AND REPOSITIONING Q2HR AND PRN FOR COMFORT AND CIRCULATION. PATIENT HAS NO NEEDS AT THIS TIME. PATIENT EDUCATED ON THE USE OF THE CALL RICK. PATIENT BED SIDE RAILS ARE UP X 2 FOR SAFETY, BED IS LOCKED, AND LOW WILL CONTINUE TO MONITOR AND MAINTAIN SAFETY.
[2019-02-01 20:41] VITALS: BP 116/67
[2019-02-01] MEDS: ATORVASTATIN 10 MG TABLET PO SCH (21:50)
[2019-02-01] MEDS: TAMSULOSIN 0.4 MG CAP.SR.24H PO SCH (21:50)
--- NOTE | 2019-02-01 21:50 | NUR ---
GPS RN NOTE, PATIENT REFUSED LOPRESSOR 25MG PO Q12HR, FLOMAX 0.4MG PO HS, LIPITOR 10MG PO HS, AND SEROQUEL 25MG PO HS. OFFERED LOPRESSOR, FLOMAX, LIPITOR, SEROQUEL THREE TIMES AND STILL PATIENT REFUSED STATING, " NO, NO, I DON'T WANT IT ". EDUCATED PATIENT ON THE RISKS AND BENEFITS OF TAKING AND REFUSING AFOREMENTIONED MEDICATION. WILL CONTINUE TO MONITOR THIS PATIENT.
[2019-02-02 06:31] LABS: BASOPHILS # (AUTO) 0.1 /CMM (0.0-0.2); BASOPHILS % (AUTO) 0.4 % (0.0-2.0); EOSINOPHILS % (AUTO) 1.2 % (0.0-6.0); HEMATOCRIT 39 % (39-51); HEMOGLOBIN 12.9 g/dL (13.5-17.5); LYMPHOCYTES # (AUTO) 1.9 /CMM (0.8-4.8); LYMPHOCYTES % (AUTO) 13.9 % (20.0-44.0); MEAN CORPUSCULAR HGB CONC 33 g/dl (31.0-36.0); MEAN CORPUSCULAR VOLUME 98 fL (80-96); MONOCYTES # (AUTO) 2.2 /CMM (0.1-1.30); MONOCYTES % (AUTO) 15.7 % (2.0-12.0); NEUTROPHILS # (AUTO) 9.5 /CMM (1.8-8.9); NEUTROPHILS % (AUTO) 68.8 % (43.0-81.0); PLATELET COUNT (AUTO) 376 /CMM (150-450); RED BLOOD CELL COUNT(AUTO) 3.99 MIL/uL (4.5-6.0); WHITE BLOOD COUNT (AUTO) 13.9 K/uL (4.3-11.0)
[2019-02-02 07:02] LABS: CALCIUM, SERUM 8.6 mg/dL (8.5-10.1); CARBON DIOXIDE 28 mmol/L (21-32); CHLORIDE 103 mmol/L (98-107); CREATININE 0.8 mg/dL (0.6-1.3); GLUCOSE 133 mg/dL (74-106); PHOSPHORUS 3.1 mg/dL (2.5-4.9); POTASSIUM 4.7 mmol/L (3.5-5.1); SODIUM SERUM 139 mmol/L (136-145); UREA NITROGEN, BLOOD 19 mg/dL (7-18)
[2019-02-02] MEDS: LEVOTHYROXINE SODIUM 25 MCG TABLET PO SCH (07:30)
[2019-02-02] MEDS: PANTOPRAZOLE 40 MG TABLET.DR PO SCH (07:30)
[2019-02-02 08:00] VITALS: BP 156/83
[2019-02-02] MEDS: RIVAROXABAN 10 MG TABLET PO SCH (08:00)
[2019-02-02] MEDS: METFORMIN 500 MG TABLET PO SCH (08:00)
[2019-02-02 08:47] LABS: BAND % (MANUAL) 1 % (0.0-5.0); EOSINOPHILS % (MANUAL) 1 % (0-4); LYMPHOCYTES % (MANUAL) 11 % (16-48); MONOCYTES % (MANUAL) 9 % (0-11.0); NEUTROPHILS % (MANUAL) 78 (42-76)
[2019-02-02] MEDS: CHOLECALCIFEROL 1,000 UNIT TABLET (VIT D3) PO SCH (09:33)
[2019-02-02] MEDS: CLOPIDOGREL BISULFATE 75 MG TABLET PO SCH (09:33)
[2019-02-02] MEDS: GABAPENTIN 100 MG CAPSULE PO SCH ×3 (09:33→17:00)
[2019-02-02] MEDS: CALCIUM CARBONATE (1250) 500 MG TABLET PO SCH (09:34)
[2019-02-02] MEDS: FOLIC ACID 1 MG TABLET PO SCH (09:34)
[2019-02-02] MEDS: OXYBUTYNIN CHLORIDE 5 MG TABLET PO SCH ×2 (09:34→17:00)
[2019-02-02] MEDS: CELECOXIB 100 MG CAPSULE PO SCH (09:34)
[2019-02-02] MEDS: METOPROLOL TARTRATE 25 MG TABLET PO SCH ×2 (09:35→22:20)
[2019-02-02] MEDS: QUETIAPINE FUMARATE 25 MG TABLET PO SCH ×3 (09:36→22:19)
[2019-02-02] MEDS: NICOTINE PATCH (14MG) 14 MG PATCH.TD24 TD SCH (09:36)
[2019-02-02] MEDS: DOCUSATE SODIUM 100 MG CAPSULE PO SCH ×2 (09:36→17:00)
[2019-02-02] MEDS: LOSARTAN POTASSIUM 50 MG TABLET PO SCH (09:37)
[2019-02-02] MEDS: ASPIRIN EC 81 MG TABLET.DR PO SCH (09:42)
[2019-02-02] MEDS: CILOSTAZOL 100 MG TABLET PO SCH ×2 (09:42→17:00)
[2019-02-02] MEDS: FLUTICASONE PROPIONATE 16 GM BOTTLE NS SCH (09:42)
--- NOTE | 2019-02-02 11:05 | NUR ---
KAYLA called Yesenia from [facility] and informed her that the SW needs an answer as soon as possible regarding whether or not the pt is accepted to the facility due to the pt having to be discharged either today or tomorrow. KAYLA stated that she cannot push the discharge any further. She stated that she would get back to the .
--- NOTE | 2019-02-02 11:35 | NUR ---
KAYLA faxed a referral to [facility] with attention to Yvonne/Lisa to the fax number: [phone].
--- NOTE | 2019-02-02 12:40 | NUR ---
KAYLA called Yesenia from [facility] and stated that the facility will take the pt but they need to speak to the pts Tonya hebert first.
--- NOTE | 2019-02-02 15:57 | NUR ---
KAYLA called the pts niece, Tonya ([phone]), and left her a voicemail stating that the pt will be discharged tomorrow.
[2019-02-02 20:25] VITALS: BP 156/67
[2019-02-02] MEDS: ATORVASTATIN 10 MG TABLET PO SCH (22:19)
[2019-02-02] MEDS: TAMSULOSIN 0.4 MG CAP.SR.24H PO SCH (22:19)
[2019-02-03] MEDS: PANTOPRAZOLE 40 MG TABLET.DR PO SCH (07:30)
[2019-02-03] MEDS: LEVOTHYROXINE SODIUM 25 MCG TABLET PO SCH (07:30)
[2019-02-03 08:00] VITALS: BP 97/64
[2019-02-03] MEDS: METFORMIN 500 MG TABLET PO SCH (08:00)
[2019-02-03] MEDS: RIVAROXABAN 10 MG TABLET PO SCH (08:00)
[2019-02-03] MEDS: FLUTICASONE PROPIONATE 16 GM BOTTLE NS SCH (08:51)
[2019-02-03] MEDS: DOCUSATE SODIUM 100 MG CAPSULE PO SCH (08:51)
[2019-02-03] MEDS: CELECOXIB 100 MG CAPSULE PO SCH (08:51)
[2019-02-03] MEDS: ASPIRIN EC 81 MG TABLET.DR PO SCH (08:51)
[2019-02-03 08:52] VITALS: BP 97/64
[2019-02-03] MEDS: FOLIC ACID 1 MG TABLET PO SCH (08:52)
[2019-02-03] MEDS: GABAPENTIN 100 MG CAPSULE PO SCH (08:52)
[2019-02-03] MEDS: OXYBUTYNIN CHLORIDE 5 MG TABLET PO SCH (08:52)
[2019-02-03] MEDS: LOSARTAN POTASSIUM 50 MG TABLET PO SCH (08:52)
[2019-02-03] MEDS: METOPROLOL TARTRATE 25 MG TABLET PO SCH (08:52)
[2019-02-03] MEDS: CLOPIDOGREL BISULFATE 75 MG TABLET PO SCH (08:53)
[2019-02-03] MEDS: CALCIUM CARBONATE (1250) 500 MG TABLET PO SCH (08:53)
[2019-02-03] MEDS: CHOLECALCIFEROL 1,000 UNIT TABLET (VIT D3) PO SCH (08:53)
[2019-02-03] MEDS: QUETIAPINE FUMARATE 25 MG TABLET PO SCH (08:53)
[2019-02-03] MEDS: CILOSTAZOL 100 MG TABLET PO SCH (08:53)
[2019-02-03] MEDS: NICOTINE PATCH (14MG) 14 MG PATCH.TD24 TD SCH (08:53)
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
--- NOTE | 2019-02-03 12:30 | NUR ---
Tonya ([phone]), pt's niece, called the SW and stated that she received the voicemail and understands that the pt is being discharged to the facility today.
--- NOTE | 2019-02-03 12:49 | NUR ---
Discharge Note: Pt was discharged to [facility] located at [address], [place] [address]; . Pt was discharged via [facility] at 11AM. Pt was placed in Rm 2B. Pts Tonya hebert ([phone]), has been notified. Upon discharge, the pt appeared to be in a labile mood and presented with a distressed affect. Pt denied both suicidal and homicidal ideation as well as auditory and visual hallucinations. Pt will be under the care of his psychiatrist, Dr. De Luna, located at [address] [place] [address]; and his facialist, Dr. De La Rosa, located at [address] [place] [address]; .
== END 2019-02-03 11:35 | DRG 885 ==
LOC: GPS 01-22 00:39
PROVIDERS: ADMIT Psychiatry & Neurology Psychiatry; ATTEND Internal Medicine
DX: F29 Unspecified psychosis not due to a substance or known physiological condition (principal); E11.65 Type 2 diabetes mellitus with hyperglycemia; F41.9 Anxiety disorder, unspecified; F03.90 Unspecified dementia, unspecified severity, without behavioral disturbance, psychotic disturbance, mood disturbance, and anxiety; R79.89 Other specified abnormal findings of blood chemistry; I10 Essential (primary) hypertension; E78.5 Hyperlipidemia, unspecified; K21.9 Gastro-esophageal reflux disease without esophagitis; N40.0 Benign prostatic hyperplasia without lower urinary tract symptoms; E03.9 Hypothyroidism, unspecified; I48.91 Unspecified atrial fibrillation; Z79.01 Long term (current) use of anticoagulants; I25.10 Atherosclerotic heart disease of native coronary artery without angina pectoris; Z59.0 Homelessness; E83.42 Hypomagnesemia; G89.29 Other chronic pain; M25.569 Pain in unspecified knee; F17.210 Nicotine dependence, cigarettes, uncomplicated; Z91.14 Patient's other noncompliance with medication regimen
CPT/HCPCS: 36415; 70450-TC; 71045-TC; 71111-TC; 80048-TC; 80053-TC; 80061-TC; 81000-TC; 82962-TC; 83735-TC; 84100-TC; 84439-TC; 84443-TC; 85025-TC; 87081-TC; 93307-TC; 97116-TC; 97530-TC